=== PATIENT | male | born 1995 | race Caucasian/White ===

== ENCOUNTER 2016-12-05 18:21 | Emergency (ER) | payer OTHER ==
[~2016-12-05] VITALS: Ht 167.6 cm; Wt 66.9 kg
[~2016-12-05 18:21] MED LIST: ELEC237S PO; FER325 PO; MESA800T2 PO; PANT40TA4 PO
[2016-12-05 18:37] VITALS: Ht 167.6 cm; Wt 66.9 kg
[2016-12-05] MEDS ORDERED: SOD CHLORIDE 0.9% 1,000 ML IV STA (19:38)
[2016-12-05] MEDS ORDERED: METHYLPREDNISOLONE 125 MG INJ IV ONE (20:00)
[2016-12-05 20:25] LABS: ADD SCAN DIFF NO
[2016-12-05 20:26] LABS: ABNORMAL IP MESSAGE 1; HEMOGLOBIN 8.8 g/dl (14.0-18.0); MEAN CORPUSCULAR HEMOGLOBIN 20.8 pg (29.0-33.0); MEAN CORPUSCULAR HGB CONC 30.3 g/dl (32.0-37.0); MEAN CORPUSCULAR VOLUME 68.6 fl (82.0-101.0); MEAN PLATELET VOLUME 9.6 fl (7.4-10.4); PLATELET COUNT 731 10^3/UL (140-415); RED BLOOD COUNT 4.23 10^6/ul (4.70-6.10); RED CELL DISTRIBUTION WIDTH 15.5 % (11.5-14.5)
[2016-12-05 20:30] LABS: ADD UMIC YES; URINE BILIRUBIN (Dip) NEGATIVE (NEGATIVE); URINE BLOOD (Dip) NEGATIVE (NEGATIVE); URINE COLOR YELLOW (YELLOW); URINE GLUCOSE (Dip) NEGATIVE (NEGATIVE); URINE KETONES (Dip) TRACE (NEGATIVE); URINE LEUKOCYTE ESTERASE (Dip) NEGATIVE (NEGATIVE); URINE NITRITE (Dip) NEGATIVE (NEGATIVE); URINE TOTAL PROTEIN (Dip) TRACE (NEGATIVE); URINE UROBILINOGEN (Dip) 0.2 E.U./dL (0.1-1.0)
[2016-12-05 20:41] LABS: ALBUMIN/GLOBULIN RATIO 0.68
[2016-12-05 20:42] LABS: ALBUMIN 2.6 g/dl (3.3-4.9); CREATININE 0.74 mg/dl (0.61-1.24); POTASSIUM 3.1 mmol/L (3.5-5.1); TOTAL PROTEIN 6.4 g/dl (6.1-8.1)
[2016-12-05 20:49] LABS: URINE RBCS NONE SEEN /HPF (0)
[2016-12-05 20:50] LABS: MUCUS,URINE FEW
[2016-12-05] MEDS ORDERED: POTASSIUM CHLORIDE (SR) 20 MEQ TAB PO STA ×2 (20:53→21:03)
[2016-12-05] MEDS ORDERED: SOD CHLORIDE 0.9% 1,000 ML IV ONE (21:00)
[2016-12-05] MEDS: POTASSIUM CHLORIDE 50 ML IVPB SCH ×2 (21:15→22:18)
[2016-12-05] MEDS ORDERED: LEVO750T25 PO (21:19)
[2016-12-05] MEDS ORDERED: PRED20TA PO (21:20)
[2016-12-05 21:34] LABS: BASOPHIL # 0.2 10^3/ul (0.0-0.1); EOSINOPHILS # 0.1 10^3/ul (0.0-0.5); MONOCYTE # 1.8 10^3/ul (0.3-0.9); NEUTROPHIL # 5.1 10^3/ul (1.6-7.5)
[2016-12-05 21:35] LABS: PLATELET ESTIMATE PLT APPEAR INCREASED
--- NOTE | 2016-12-05 21:51 | ERD ---
ER Documentation Chief Complaint Date/Time DATE: 12/05/16 TIME: 21:44 Chief Complaint lower abd p[ain x 4 days, diarrhea, poor appetite HPI This patient is a 21-year-old male with history of ulcerative colitis presenting to the emergency department for worsening watery, bloody stools ongoing intermittently for the past 4 days. The patient saw his primary care physician yesterday who recommended he go to the emergency department for IV fluids due to dehydration. The patient admits to anorexia. The patient states his symptoms are currently moderate. The patient denies any fevers, chills, abdominal pain, nausea, vomiting, or other symptoms at this time. ROS All systems reviewed and are negative except as per history of present illness. Medications Home Meds Active Scripts Prednisone* (Prednisone*) 20 Mg Tab, 60 MG PO DAILY for 5 Days, #15 TAB Prov:LICHA GARRISON PA-C 12/05/16 Levofloxacin* (Levaquin*) 750 Mg Tablet, 750 MG PO DAILY for 10 Days, #10 TAB Prov:LICHA GARRISON PA-C 12/05/16 Mesalamine* (Asacol HD) 800 Mg Tablet., 1800 MG PO TID for 42 Days, TAB Prov:ONEYDA DELACRUZ MD 06/01/16 Eletrolyte,Oral (Pedialyte Electrolyte Singles) 237 Ml Solution, 237 ML PO Q6 Y for DIARRHEA for 30 Days, EA Prov:MYRTLE LIMON NP 05/31/16 Pantoprazole* (Pantoprazole*) 40 Mg Tablet., 40 MG PO DAILY@06 for 30 Days Prov:MYRTLE LIMON NP 05/31/16 Ferrous Sulfate* (Ferrous Sulfate*) 325 Mg Tabec, 325 MG PO DAILY for 30 Days, TAB Prov:KENNETH GRIFFIN MD 05/14/16 Allergies Allergies: Coded Allergies: No Known Allergy (Unverified , 05/24/16) PMhx/Soc History of Surgery: No Anesthesia Reaction: No Hx Neurological Disorder: No Hx Respiratory Disorders: No Hx Cardiac Disorders: No Hx Psychiatric Problems: No Hx Miscellaneous Medical Probl: Yes (anemia Ulcerative Colitis) Hx Alcohol Use: No Hx Substance Use: No Hx Tobacco Use: No Smoking Status: Never smoker FmHx Noncontributory for chief complaint Physical Exam Vitals Vital Signs Date Time Temp Pulse Resp B/P Pulse Ox O2 Delivery O2 Flow Rate FiO2 12/05/16 18:37 98.6 61 20 119/58 98 Physical Exam INITIAL VITAL SIGNS: Reviewed by me. GENERAL: Alert and interactive. No acute distress. The patient is slightly pale in appearance HEAD: Head is normocephalic and atraumatic. EYES: EOMI. No scleral icterus. No conjunctival injection. ENT: Moist mucosa. NECK: Supple. Full range of motion. RESPIRATORY: Normal respiratory effort. Clear breath sounds bilaterally. No wheezing, rales, or rhonchi. CV: Regular rate and rhythm. Normal S1 S2. No S3 or S4. No murmurs. ABDOMEN: Soft, non-distended, non-tender. No guarding. No rebound. No masses. EXTREMITIES: No deformity. SKIN: Warm and dry. NEUROLOGIC: Alert and oriented x 4. Speech is normal. Moves all extremities equally. No motor or sensory deficits noted. Result Diagram: 12/05/16195512/05/161955 Results 24 hrs Laboratory Tests Test 12/05/16 19:56 Alanine Aminotransferase (ALT/SGPT) 18IU/L Albumin 2.6g/dl Albumin/Globulin Ratio 0.68 Alkaline Phosphatase 75IU/L Anion Gap 13 Aspartate Amino Transf (AST/SGOT) 10IU/L Band Neutrophils % 8.0% Basophils # 0.210^3/ul Basophils % 2.0% Blood Urea Nitrogen 6mg/dl Calcium Level 8.0mg/dl Carbon Dioxide Level 31mmol/L Chloride Level 95mmol/L Creatinine 0.74mg/dl Direct Bilirubin 0.00mg/dl Eosinophils # 0.110^3/ul Eosinophils % 1.0% Globulin 3.80g/dl Glucose Level 116mg/dl Hematocrit 29.0% Hemoglobin 8.8g/dl Indirect Bilirubin 0.0mg/dl Lipase 11U/L Lymphocytes # 2.010^3/ul Lymphocytes % 20.0% Mean Corpuscular Hemoglobin 20.8pg Mean Corpuscular Hemoglobin Concent 30.3g/dl Mean Corpuscular Volume 68.6fl Mean Platelet Volume 9.6fl Monocytes # 1.810^3/ul Monocytes % 18.0% Neutrophils # 5.110^3/ul Neutrophils % 51.0% Platelet Count 31031^3/UL Platelet Estimate PLT APPEAR INCREASED Potassium Level 3.1mmol/L Red Blood Count 4.2310^6/ul Red Cell Distribution Width 15.5% Sodium Level 136mmol/L Total Bilirubin 0.0mg/dl Total Protein 6.4g/dl Urine Bilirubin NEGATIVE Urine Clarity CLEAR Urine Color YELLOW Urine Glucose NEGATIVE% Urine Hemoglobin NEGATIVE Urine Ketones TRACE Urine Leukocyte Esterase NEGATIVE Urine Microscopic RBC NONE SEEN/HPF Urine Microscopic WBC 0-2/HPF Urine Mucus FEW Urine Nitrite NEGATIVE Urine Specific [place] 1.020 Urine Total Protein TRACE Urine Urobilinogen 0.2 E.U./dL Urine pH 6.0 White Blood Count 10.010^3/ul Current Medications Medications (Trade) Dose Ordered Sig/Steven Route PRN Reason Start Time Stop Time Status Last Admin Dose Admin Sodium Chloride (NS) 1,000 ml @ 1,000 mls/hr Q1H STAT IV 12/05/16 19:38 12/05/16 20:37 DC 12/05/16 20:04 Methylprednisolone Sodium Succinate (Solu-Medrol) 125 mg ONCE ONCE IV 12/05/16 20:00 12/05/16 20:01 DC 12/05/16 20:07 Potassium Chloride 20 meq 20 meq ONCE STAT PO 12/05/16 20:53 12/05/16 21:05 DC Sodium Chloride (NS) 1,000 ml @ 1,000 mls/hr Q1H ONCE IV 12/05/16 21:00 12/05/16 21:59 12/05/16 21:02 Potassium Chloride 40 meq 40 meq ONCE STAT PO 12/05/16 21:03 12/05/16 21:06 DC 12/05/16 21:15 Potassium Chloride (KCl 10 MEQ/50 ML SW) 50 ml @ 50 mls/hr Q1H IVPB 12/05/16 21:30 12/05/16 23:29 12/05/16 21:15 Procedures/[facility] EMERGENCY DEPARTMENT COURSE / MEDICAL DECISION MAKING: This is a 21-year-old male who comes to the emergency room secondary to complaints of watery, bloody stools. The patient was given IV fluids, IV potassium, oral potassium in the department. On re-evaluation, the patient was feeling improved. Lab results reviewed and showed slight hypokalemia, anemia, hypocalcemia, but no other significant acute abnormalities. All of the abnormal lab values were not marked. I spoke with supervising physician, Dr. Freire, who agreed with the ED course up until this point and recommended IV potassium, oral potassium, IV fluids, and sending the patient home with prescriptions for prednisone and Levaquin. I have honored these recommendations. The primary diagnosis is ulcerative colitis. I have low suspicion for severe ulcerative colitis or anemia requiring admission , bowel obstruction, acute abdomen, or other emergent conditions at this time. Discharge: I have discussed the lab results and diagnostic findings with the patient and answered any questions or concerns. The patient was advised to follow-up with his primary care physician as soon as possible. The patient was advised to follow-up with his GI specialist within the next 1-2 days. The patient was explicitly informed to return to the emergency department with any new or worsening symptoms and he understands this information. The patient was discharged with a prescription for prednisone and Levaquin. The patient understood and agreed with the diagnosis, treatment and plan. The patient is stable for discharge at this time. Departure Diagnosis: Primary Impression: Ulcerative colitis with rectal bleeding Ulcerative colitis location: unspecified ulcerative colitis location Qualified Code: K51.911 - Ulcerative colitis with rectal bleeding, unspecified location Condition: Fair Patient Instructions: What Is Ulcerative Colitis?, Management of Ulcerative Colitis: Lifestyle, Management of Ulcerative Colitis: Medications Referrals: [facility] YOU HAVE RECEIVED A MEDICAL SCREENING EXAM AND THE RESULTS INDICATE THAT YOU DO NOT HAVE A CONDITION THAT REQUIRES URGENT TREATMENT IN THE EMERGENCY DEPARTMENT. FURTHER EVALUATION AND TREATMENT OF YOUR CONDITION CAN WAIT UNTIL YOU ARE SEEN IN YOUR DOCTORS OFFICE WITHIN THE NEXT 1-2 DAYS. IT IS YOUR RESPONSIBILITY TO MAKE AN APPOINTMENT FOR FOLOW-UP CARE. IF YOU HAVE A PRIMARY DOCTOR --you should call your primary doctor and schedule an appointment IF YOU DO NOT HAVE A PRIMARY DOCTOR YOU CAN CALL OUR PHYSICIAN REFERRAL HOTLINE AT IF YOU CAN NOT AFFORD TO SEE A PHYSICIAN YOU CAN CHOSE FROM THE FOLLOWING [facility] [address] [facility] [address] [email or web address] [address] [facility] [place] [address] [facility] [address] [facility]. [facility] [address] Additional Instructions: Return to the emergency department immediately should your symptoms continue or worsen. Follow-up with your primary care physician within 1 week. Return to the emergency department immediately should you have any new or worsening symptoms, uncontrolled fevers, or other unexplained symptoms. Take all medications as directed. LICHA GARRISON PA-C Dec 05, 2016 21:51
[2016-12-05 23:18] VITALS: BP 111/59; PULSE 104; RESP 16; TEMP 99
== END 2016-12-05 23:25 | disposition home or self-care (01) ==
LOC: FTE 18:21
DX: K51.911 Ulcerative colitis, unspecified with rectal bleeding (principal)
CPT/HCPCS: 36415; 80053; 81001; 81003; 83690; 85025; 96374; J2930; J3480; J7030; Z7502; Z7610